=== PATIENT | male | born 1950 | race Caucasian/White ===

== ENCOUNTER 2017-11-08 07:43 | Outpatient (CLI) | payer MEDICARE, OTHER ==
--- NOTE | 2017-11-08 13:30 | MRI Report ---
EXAM: MRI LUMBAR SPINE WITHOUT CONTRAST EXAM DATE: 11/08/2017 08:28 AM. CLINICAL HISTORY: Paresthesias of scan. Chronic intermittent bilateral lower extremity numbness. Soha ent has one kidney and refused IV contrast. COMPARISON: None. TECHNIQUE: Multiplanar, multisequence T1-weighted and fluid-sensitive sequences of the lumbar spine f rom T12 to S1 without contrast. Other: None. Findings: Relevant images are indicated (image number, series number). There are 5 rji-ppo-nhecwuk lumbar vertebra present. Conus terminates at L1. There is no abnormal lumbar cord signal or suspicious marrow lesion. There is no lumbar paraspinal mass or collection. Partly visualized bilateral sacroiliac joints are unremarka ble. Surrounding skeletal muscle is unremarkable. Chronic multilevel lower lumbar spine posterior fac et degenerative changes are present. There is no bernadette-facet edema. T11-T12: Zdyd-ex-vjwenaly disk desiccation, minimal post disk bulge without canal stenosis or neural foramina narrowing. T12-L1: Moderate disk degenerative change, posterior small disk protrusion, no canal stenosis or neur al foramina narrowing. L1-L2: Yuez-eo-yfmsvafp disk desiccation only. L2-L3: Moderate disk desiccation, trace Modic type I endplate change. Small posterior disk bulge, no canal stenosis. There is mild to moderate posterior facet degenerative change with moderate bilateral neural foramina narrowing. L3-L4: Mild to moderate disk desiccation, minimal posterior disk bulge. Moderate, marked posterior fa cet degenerative change with bahd-rz-mnoghbzv bilateral neural foramina narrowing L4-L5: Moderate disk degenerative change, posterior broad-based disk protrusion measures at least 0.5 x 1.0 cm AP by sagittal. Transverse dimension is essentially the width of the vertebral body. Small Schmorl's nodes present L4 inferior endplate, L5 superior endplate with small reactive edema. Mild Mo dic type I endplate change, eccentric left parasagittal. There is moderate to marked left and right n eural foramina narrowing, suspected contact bilateral L4 initially contacting traversing bilateral L5 nerve roots. There is moderate canal stenosis. L5-S1: Mild disk desiccation, no canal stenosis. Moderate to marked posterior facet degenerative aguilera ges. There is mild, moderate bilateral neural foraminal narrowing. Remaining upper sacral canal is unremarkable. Impression: 1. No acute findings. Patient born with only one kidney, and refused IV contrast. There are 5 non-rib -bearing lumbar vertebra, there is no abnormal lumbar cord signal or suspicious marrow lesion. There is advanced multilevel lumbar spondylosis, multilevel chronic posterior facet bony hypertrophy change s. There is no lumbar paraspinal mass or collection. Pertinent degenerative levels below. 2. L2-L3: Trace Modic type I endplate change may be locally symptomatic. Moderate degenerative bilate ral neural foraminal narrowing without apparent nerve root contact. 3. L4-L5: Posterior broad-based disk protrusion as described, with moderate canal stenosis, mild Aubrey c type I endplate changes eccentric left parasagittal with small Schmorl's node development, may be l ocally symptomatic. Prominent posterior facet degenerative changes, moderate to marked degenerative b ilateral neural foramina narrowing may contribute a bilateral L4 as well as traversing bilateral L5 r adiculopathy. 4. Milder or no significant degenerative changes of the remaining lower thoracic, lumbar spine levels as detailed. Comment: The following findings are so common in adults without low back pain that while we report th eir presence, they must be interpreted with caution and in the context of the clinical situation. (Re slim Real et al, Spine 2001) Prevalence of findings in patients without low back pain: Disk degeneration (any evidence): 92% Disk desiccation/T2 signal loss: 83% Disk height loss: 56% Disk bulge: 64% Disk protrusion: 32% Annular tear/high intensity zone: 38% [facility] Referring Provider Line: [phone] SITE ID: [id number]
== END 2017-11-08 07:44 | disposition home or self-care (01) ==
LOC: DI 07:43
PROVIDERS: ATTEND Internal Medicine
DX: M51.36 Other intervertebral disc degeneration, lumbar region (principal); M47.896 Other spondylosis, lumbar region; M51.34 Other intervertebral disc degeneration, thoracic region; M51.26 Other intervertebral disc displacement, lumbar region; M51.46 Schmorl's nodes, lumbar region; M51.37 Other intervertebral disc degeneration, lumbosacral region; M47.897 Other spondylosis, lumbosacral region
CPT/HCPCS: 72148

== ENCOUNTER 2017-12-18 10:43 | Emergency (ER) | payer MEDICARE, OTHER ==
[2017-12-18] MEDS ORDERED: GABAPENTIN 100 MG CAPSULE PO STA (12:08)
--- NOTE | 2017-12-18 12:10 | ED Physician Documentation ---
History of Present Illness - Stated complaint Stated Complaint: BODY HEAT/BURN - Chief complaint Chief Complaint: General - History obtained from History obtained from: Patient, Family - History of Present Illness Timing: Other (This is a relatively healthy 67-year-old gentleman with idiopathic neuropathy. It sounds like he has had a pretty thorough workup including heavy metal, vitamin, remote EMG testing. He does not drink alcohol and he is not a diabetic. The only finding is a modestly elevated arsenic level. Regardless he was having side effects with the gabapentin, 900 mg at night that he was taking for this and stopped it a few days ago and switched to Lyrica. Over the last few nights she has had increasing sensation of heat and burning in a stocking glove distribution.) Review of Systems Constitutional: denies: Fever, Chills Throat: denies: Dental pain / toothache, Sore throat Cardiac: denies: Chest pain / pressure, Palpitations Respiratory: denies: Dyspnea, Cough PD PAST MEDICAL HISTORY - Past Medical History Past Medical History: Yes Neuro: Peripheral neuropathy - Past Surgical History Past Surgical History: Yes General: Cholecystectomy, Appendectomy, Other - Present Medications Home Medications: Ambulatory Orders Medication Instructions Recorded Confirmed Acetaminophen [Tylenol] 12/18/17 Aspirin Chewable [[place] 12/18/17 Aspirin] Mometasone Furoate [Nasonex] 12/18/17 Multivitamin/Iron/Folic Acid 12/18/17 12/18/17 [Centrum Adults Tablet] Mupirocin 12/18/17 Oxymetazoline HCl [Afrin] 12/18/17 Pregabalin [Lyrica] 12/18/17 Telmisartan [Micardis] 12/18/17 - Allergies Allergies/Adverse Reactions: Allergies Allergy/AdvReac Type Severity Reaction Status Date / Time Penicillins Allergy Hives Verified 12/18/17 10:56 - Social History Does the pt smoke?: No Smoking Status: Never smoker Does the pt drink ETOH?: Yes Does the pt have substance abuse?: Yes Substance Use and Type: Marijuana - Immunizations Immunizations are current?: Yes Immunizations: TDAP >10years/unknown PD ED PE NORMAL - Vitals Vital signs reviewed: Yes - General General: Alert and oriented X 3, No acute distress - Derm Derm: Normal color, Warm and dry, No rash - Extremities Extremities: Other (Normal lower extremity reflexes 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 Departure - Departure Disposition: 01 Home, Self Care Clinical Impression: Peripheral neuropathy Qualifiers: Peripheral neuropathy type: polyneuropathy, unspecified Qualified Code(s): G62.9 - Polyneuropathy, unspecified Condition: Good Record reviewed to determine appropriate education?: Yes Comments: Restart the gabapentin, 900 mg at night. Return if worse. Follow-up with your physician for further evaluation and treatment. Discharge Date/Time: 12/18/17 12:24
[2017-12-18 12:16] VITALS: BP 125/79
== END 2017-12-18 12:24 | disposition home or self-care (01) ==
LOC: ED 10:43
DX: G62.9 Polyneuropathy, unspecified (principal)
CPT/HCPCS: 99283; A9270